=== PATIENT | female | born 1995 | race Caucasian/White ===

== ENCOUNTER 2018-01-25 10:05 | Emergency (ER) | payer OTHER ==
[2018-01-25 10:15] VITALS: TEMP 98; BMI 42.3
--- NOTE | 2018-01-25 10:59 | PDOC ---
History of Present Illness - General Chief Complaint: Lightheaded Stated Complaint: DIZZINESS,LOW BP - History of Present Illness Initial Comments: 01/25/18 10:59 22yo female with a hx of anemia presents with dizziness and lightheadedness since this morning. She states that she woke up this morning and felt lightheaded when she got up and out of bed, feeling like she would pass out. The feeling resolved but recurred again while she was in the shower. Patient states that this happened before about 1 year ago, but she was bleeding and needed to be hospitalized and given iron supplementation. She denies any current bleeding. Denies being . Endorses some nausea but no vomiting. Denies chest pain, SOB, diarrhea, fevers, chills. Allergies: none PMD: none Surg: none Smoke: never Alcohol: never LKMP: 1 month ago Past History - Past Medical History Allergies/Adverse Reactions: Allergies Allergy/AdvReac Type Severity Reaction Status Date / Time No Known Allergies Allergy Verified 01/25/18 10:15 Home Medications: Ambulatory Orders Ferrous Sulfate [Iron] 325 mg PO DAILY 01/25/18 Anemia: Yes COPD: No - Suicide/Smoking/Psychosocial Hx Smoking History: Never smoked Review of Systems - Review of Systems Able to Perform ROS?: Yes Is the patient limited Hebrew proficient: Yes Constitutional: Yes: Weakness Respiratory: No: Shortness of Breath Cardiac (ROS): No: Chest Pain ABD/GI: No: Diarrhea, Nausea, Vomiting : No: Dysuria Neurological: Yes: Dizziness *Physical Exam - Vital Signs Last Vital Signs Temp Pulse Resp BP Pulse Ox 98 F 81 18 118/80 99 01/25/18 10:14 01/25/18 10:14 01/25/18 10:14 01/25/18 10:14 01/25/18 10:14 - Physical Exam Comments: 01/25/18 11:12 GENERAL: A&Ox3, no acute distress EYES: PERRLA, EOMI ENT: Moist mucus membranes NECK: No JVD LUNGS: CTA, no wheezes HEART: RRR, no murmurs ABDOMEN: Obese, Soft, nontender, BS present MUSCULOSKELETAL: No CVA Tenderness EXTREMITIES: 2+ pulses, no edema. NEUROLOGICAL: Cranial nerves II-XII intact. ED Treatment Course - LABORATORY CBC & Chemistry Diagram: 01/25/18 11:20 01/25/18 11:20 Medical Decision Making - Medical Decision Making 01/25/18 11:12 22 year old female hx of anemia presents with dizziness and lightheadedness DDx: anemia, hypo/hyperglycemia, orthostatic hypotension -cbc, cmp, mag, ekg, tsh, UA, -1 liter fluids 01/25/18 11:40 Orthostatics: -laying down: 113/667 -sittin/66 T: 97.7 P: 78 01/25/18 12:45 -patient feels better and is not lightheaded anymore -will check UA and d/c home *DC/Admit/Observation/Transfer Diagnosis at time of Disposition: Lightheadedness - Discharge Dispostion Disposition: HOME Condition at time of disposition: Stable Decision to Admit order: No - Referrals Referrals: Won Nagy [Primary Care Provider] - - Patient Instructions Additional Instructions: You were seen in the hospital for lightheadedness Your blood tests were all normal. You received some fluids in the hospital Please make an appointment with your primary care physician within 1 week of discharge If your symptoms get worse, please return to the emergency department - Post Discharge Activity
[2018-01-25] MEDS ORDERED: SODIUM CHLORIDE 0.9% 1000 ML INFUS.BAG IV ONE (11:04)
[2018-01-25 11:27] LABS: BASO % 0.3 % (0-2.0); EOS % 0.5 % (0-4.5); HEMATOCRIT 32.6 % (32.4-45.2); HEMOGLOBIN 10.2 GM/dL (10.7-15.3); LYMPH % 9.5 % (8-40); MCH 22.6 pg (25.7-33.7); MCHC 31.3 g/dl (32.0-36.0); MEAN CELL VOLUME 72.2 fl (80-96); MEAN PLT VOLUME 8.2 fl (7.5-11.1); NEUT % 84.7 % (42.8-82.8); PLATELET COUNT 432 K/MM3 (134-434); RBC 4.52 M/mm3 (3.60-5.2); RDW 16.7 % (11.6-15.6); WHITE BLOOD COUNT 10.2 K/mm3 (4.0-10.0)
[2018-01-25 11:42] LABS: ALBUMIN 3.5 g/dl (3.4-5.0); ANION GAP 6 (8-16); BLOOD UREA NITROGEN 10 mg/dL (7-18); CALCIUM 8.4 mg/dL (8.5-10.1); CHLORIDE 106 mmol/L (98-107); CO2 27 mmol/L (21-32); GLUCOSE,RANDOM 126 mg/dL (74-106); SODIUM 139 mmol/L (136-145)
--- NOTE | 2018-01-25 11:42 | PDOC ---
Attending Attestation - HPI HPI: 01/25/18 13:18 The patient is a 22 year old female with a significant PMH of anemia who presents to the emergency department with dizziness, lightheadedness since earlier today. She states that she woke up this morning and felt lightheaded when she got up and out of bed, feeling like she would pass out. The patient states that The feeling resolved but recurred again while she was in the shower. She reports that she has experienced similar episode about 1 year ago, but she was bleeding and needed to be hospitalized and given iron supplementation. The patient denies any current bleeding . she denies being but endorses nausean. The patient denies fever, chills, vomit, diarrhea ,constipation or other urinary symptoms. She denies chest pain, shortness of breath, headache The patient denies any other complaints. PCP: Yakov - Physicial Exam PE: 01/25/18 13:18 GENERAL: Awake, alert, and fully oriented, in no acute distress HEAD: No signs of trauma EYES: PERRLA, EOMI, sclera anicteric, conjunctiva clear ENT: Auricles normal inspection, hearing grossly normal, nares patent, oropharynx clear without exudates. Moist mucosa NECK: Normal ROM, supple, no lymphadenopathy, JVD, or masses LUNGS: Breath sounds equal, clear to auscultation bilaterally. No wheezes, and no crackles HEART: Regular rate and rhythm, normal S1 and S2, no murmurs, rubs or gallops ABDOMEN: Soft,obese, nontender, normoactive bowel sounds. No guarding, no rebound. No masses EXTREMITIES: Normal range of motion, no edema. No clubbing or cyanosis. No cords, erythema, or tenderness NEUROLOGICAL: Cranial nerves II through XII grossly intact. Normal speech, normal gait SKIN: Warm, Dry, normal turgor, no rashes or lesions noted. Documentation prepared by Ruby Acosta, acting as medical scientist for Anne Page MD. <Ruby Acosta - Last Filed: 01/25/18 13:18> - Resident Resident Name: Bam Keys - ED Attending Attestation I have performed the following: I have examined & evaluated the patient, The case was reviewed & discussed with the resident, I agree w/resident's findings & plan, Exceptions are as noted - Medical Decision Making 06/17/18 11:38 I, Dr. Anne Page, DO, attest that this document has been prepared under my direction and personally reviewed by me in its entirety. I further attest, that it accurately reflects all work, treatment, procedures and medical decision -making performed by me. 01/25/18 11:38 a/p: 22yo female presents c/o lightheaded -worse when she sits up or stands -no cp/sob -had palpitations this AM -hx of heavy menstrual cycles - required iv iron infusions and blood transfusions in 2016 -recently given rx for control to control heavy menstrual bleeding, but hasn't started taking it yet -has not followed up with hematology -will check labs, orthostatic vs, ekg, tsh 01/25/18 13:08 labs reviewed, hgb 10 feels better after ivf hydration stable for d/c to home with outpt follow up with tank truck loader <Anne Page - Last Filed: 01/25/18 13:19> Discharge Disposition <Anne Page - Last Filed: 01/25/18 13:19> - Diagnosis Lightheadedness - Discharge Dispostion Disposition: HOME Condition at time of disposition: Stable - Referrals Referrals: Mavis Miller MD [Staff Physician] - 28 days Won Nagy [Primary Care Provider] - - Patient Instructions Additional Instructions: You were seen in the hospital for lightheadedness Your blood tests were all normal. You received some fluids in the hospital Please make an appointment with your primary care physician within 1 week of discharge Please make an appointment with the yarder engineer Dr. Miller within 1 month of discharge to evaluate anemia If your symptoms get worse, please return to the emergency department - Post Discharge Activity Work/School Note: Back to Work Heart Score/ECG Review - ECG Intrepretation Comment:: 01/25/18 11:42 sinus at 73, nl axis, nl interval, t wave inversions III which are nonspecific <Anne Page - Last Filed: 01/25/18 13:19>
[2018-01-25 11:45] LABS: BILIRUBIN,TOTAL 0.4 mg/dL (0.2-1.0); CREATININE 0.6 mg/dL (0.55-1.02); SGOT/AST 48 U/L (15-37); SGPT/ALT 96 U/L (12-78); TOT PROT 7.6 g/dl (6.4-8.2)
[2018-01-25 11:54] LABS: ALK PHOS 142 U/L (45-117)
[2018-01-25 12:34] VITALS: PULSE 78
[2018-01-25 12:35] VITALS: BP 114/58
[2018-01-25 12:57] LABS: URINE APPEARANCE CLEAR; URINE BILIRUBIN NEGATIVE (<2.0 mg/dL); URINE COLOR YELLOW; URINE GLUCOSE (UA) NEGATIVE (NEGATIVE); URINE KETONE NEGATIVE (NEGATIVE); URINE LEUK ESTERASE NEGATIVE (NEGATIVE); URINE NITRITE NEGATIVE (NEGATIVE); URINE PROTEIN NEGATIVE (NEGATIVE); URINE UROBILINOGEN NEGATIVE mg/dL (0.2-1.0)
--- NOTE | 2018-01-25 19:37 | EKG ---
Test Reason : Blood Pressure : / mmHG Vent. Rate : 073 BPM Atrial Rate : 073 BPM P-R Int : 136 ms QRS Dur : 096 ms QT Int : 404 ms P-R-T Axes : 030 055 018 degrees QTc Int : 445 ms NORMAL SINUS RHYTHM NORMAL ECG NO PREVIOUS ECGS AVAILABLE Confirmed by MADELEIEN BRAND, NORMA ([id number]) on 01/25/2018 7:36:40 PM Referred By: Confirmed By:NORMA SALVADOR MD
== END 2018-01-25 13:33 | disposition home or self-care (01) ==
LOC: JER 10:05
DX: R42 Dizziness and giddiness (principal); D64.89 Other specified anemias
CPT/HCPCS: 36415; 80053; 81003; 83735; 84443; 84703; 85025; 93005; 93010; 99283-25; J7030

== ENCOUNTER 2018-12-17 11:14 | Emergency (ER) | payer SELFPAY ==
[2018-12-17 11:23] VITALS: BP 134/73; PULSE 95; TEMP 98.3; BMI 44.4
[2018-12-17] MEDS ORDERED: SODIUM CHLORIDE 1,000 ML IV STA (12:21)
[2018-12-17] MEDS ORDERED: ACETAMINOPHEN 1000 MG/100 ML VIAL (NON FORMULARY) IVPB ONE (12:21)
[2018-12-17] MEDS ORDERED: ACETAMINOPHEN INJECTION 100 ML IVPB ONE (12:29)
[2018-12-17 12:50] LABS: BASO % 1.2 % (0-2.0); EOS % 1.5 % (0-4.5); HEMATOCRIT 29.6 % (32.4-45.2); HEMOGLOBIN 8.9 GM/dL (10.7-15.3); MCH 21.6 pg (25.7-33.7); MCHC 30.2 g/dl (32.0-36.0); MEAN CELL VOLUME 71.5 fl (80-96); MEAN PLT VOLUME 8.4 fl (7.5-11.1); MONO % 5.6 % (3.8-10.2); NEUT % 72.7 % (42.8-82.8); PLATELET COUNT 430 K/MM3 (134-434); RBC 4.14 M/mm3 (3.60-5.2); RDW 16.9 % (11.6-15.6); WHITE BLOOD COUNT 10.4 K/mm3 (4.0-10.0)
[2018-12-17 13:26] LABS: ALBUMIN 3.6 g/dl (3.4-5.0); BILIRUBIN,TOTAL 0.4 mg/dL (0.2-1); CALCIUM 9.1 mg/dL (8.5-10.1); CREATININE 0.6 mg/dL (0.55-1.3); POTASSIUM 4.3 mmol/L (3.5-5.1); TOT PROT 7.7 g/dl (6.4-8.2)
[2018-12-17 13:43] LABS: PH,URINE 5.5 (5.0-8.0); URINE APPEARANCE CLEAR; URINE BACTERIA 11.2 /hpf (NEGATIVE); URINE BILIRUBIN NEGATIVE (NEGATIVE); URINE CASTS 0 /lpf (0-8); URINE COLOR YELLOW; URINE GLUCOSE (UA) NEGATIVE (NEGATIVE); URINE KETONE NEGATIVE (NEGATIVE); URINE LEUK ESTERASE TRACE (NEGATIVE); URINE NITRITE NEGATIVE (NEGATIVE); URINE PROTEIN NEGATIVE (NEGATIVE); URINE RBC 1 /hpf (0-4); URINE UROBILINOGEN 0.2 mg/dL (0.2-1.0); URINE WBC 1 /hpf (0-5)
[2018-12-17 14:28] LABS: ANISOCYTOSIS 1+; MACROCYTOSIS 0; PLATELET ESTIMATE NORMAL
--- NOTE | 2018-12-17 15:25 | PDOC ---
History of Present Illness - General Chief Complaint: Vaginal Bleeding Stated Complaint: VAGINAL BLEED Time Seen by Provider: 12/17/18 12:16 History Source: Patient Exam Limitations: No Limitations - History of Present Illness Travel History: No Initial Comments: 12/17/18 15:21 23-year-old female presents to ED with complaints of lower abdominal cramping, intermittent vaginal bleeding for the past 2 months, passing large clots, and mild low back pain dull pressure. Patient denies headache, dizziness, weakness, nausea, change in urine pattern, or visual changes. Patient does state mild weakness and is supposed be taking iron daily but feels to take it every day due to side effects of stomach cramping. Patient denies change in weight, hair texture, or increased dryness to the skin Timing/Duration: reports: intermittent Quality: reports: mild, cramping Abdominal Pain Onset Location: reports: suprapubic Pain Radiation: reports: back Activities at Onset: reports: none Aggravating Factors: improves with: None Alleviating Factors: improves with: None Past History - Travel Traveled outside of the country in the last 30 days: No Close contact w/someone who was outside of country & ill: No - Past Medical History Allergies/Adverse Reactions: Allergies Allergy/AdvReac Type Severity Reaction Status Date / Time No Known Allergies Allergy Verified 12/17/18 11:23 Home Medications: Ambulatory Orders Ferrous Sulfate [Iron] 325 mg PO DAILY 01/25/18 Anemia: Yes COPD: No - Suicide/Smoking/Psychosocial Hx Smoking History: Never smoked Hx Alcohol Use: No Drug/Substance Use Hx: No Patient Lives Alone: No Lives with/in: parents Review of Systems - Review of Systems Able to Perform ROS?: Yes Constitutional: Yes: Weakness HEENTM: No: Symptoms Reported Respiratory: No: Symptoms reported Cardiac (ROS): No: Symptoms Reported ABD/GI: Yes: Abdominal cramping : Yes: Discharge Musculoskeletal: Yes: Back Pain Integumentary: No: Symptoms Reported Neurological: Yes: Weakness. No: Headache, Dizziness Hematologic/Lymphatic: No: Symptoms Reported *Physical Exam - Vital Signs Last Vital Signs Temp Pulse Resp BP Pulse Ox 98.3 F 95 H 16 134/73 98 12/17/18 11:21 12/17/18 11:21 12/17/18 11:21 12/17/18 11:21 12/17/18 11:21 - Physical Exam General Appearance: Yes: Nourished, Appropriately Dressed. No: Apparent Distress HEENT: positive: ROMAN. negative: Pale Conjunctivae Neck: positive: Normal Thyroid, Supple Respiratory/Chest: positive: Lungs Clear, Normal Breath Sounds. negative: Respiratory Distress, Accessory Muscle Use Cardiovascular: positive: Regular Rhythm, Regular Rate. negative: Murmur Female Pelvic Exam: positive: cervical os closed, vaginal bleeding (bright red, no clots) Gastrointestinal/Abdominal: positive: Soft, Tenderness (mild mid suprapubic) Integumentary: positive: Normal Color, Warm, Moist Neurologic: positive: Motor Strength 5/5 (ambulatory) ED Treatment Course - LABORATORY CBC & Chemistry Diagram: 12/17/18 12:40 12/17/18 12:40 - ADDITIONAL ORDERS Additional order review: Laboratory Results 12/17/18 12/17/18 12/17/18 13:23 12:40 12:40 Sodium 137 Potassium 4.3 Chloride 105 Carbon Dioxide 27 Anion Gap 5 L BUN 12 Creatinine 0.6 Est GFR (CKD-EPI)AfAm 151.01 Est GFR (CKD-EPI)NonAf 130.29 Random Glucose 111 H Calcium 9.1 Total Bilirubin 0.4 AST 35 ALT 100 H Alkaline Phosphatase 131 H Total Protein 7.7 Albumin 3.6 Urine Color Yellow Urine Appearance Clear Urine pH 5.5 Ur Specific [place] 1.015 Urine Protein Negative Urine Glucose (UA) Negative Urine Ketones Negative Urine Blood Negative Urine Nitrite Negative Urine Bilirubin Negative Urine Urobilinogen 0.2 Ur Leukocyte Esterase Trace Urine WBC (Auto) 1 Urine RBC (Auto) 1 Urine Casts (Auto) 0 U Epithel Cells (Auto) 1.0 Urine Bacteria (Auto) 11.2 Blood Type O POSITIVE Antibody Screen Negative 12/17/18 12:40 RBC 4.14 MCV 71.5 L MCHC 30.2 L RDW 16.9 H MPV 8.4 Neutrophils % 72.7 Lymphocytes % 19.0 D Monocytes % 5.6 Eosinophils % 1.5 D Basophils % 1.2 D - RADIOLOGY Radiology Studies Ordered: Category Date Time Status PELVIC / BLADDER US [US] Stat Ultrasound 12/17/18 12:21 Taken TRANSVAGINAL ULTRASOUND US [US] Stat Ultrasound 12/17/18 12:21 Taken - Medications Given in the ED: ED Medications Discontinued Medications Generic Name Dose Route Start Last Admin Trade Name Giovanny PRN Reason Stop Dose Admin Acetaminophen 1,000 mg 12/17/18 12:21 12/17/18 12:43 Ofirmev Injection - IVPB 12/17/18 12:22 1,000 mg ONCE ONE Administration Sodium Chloride 1,000 mls @ 1,000 mls/hr 12/17/18 12:21 12/17/18 12:43 Normal Saline - IV 12/17/18 13:20 1,000 mls/hr ASDIR STA Administration Medical Decision Making - Medical Decision Making 12/17/18 13:21 Complaint: Lower abdominal cramping associated intermittent vaginal bleeding for the past month now with low back pain and mild weakness. Patient states history of anemia and supposed to be on ibuprofen to take it everyday due to upper abdominal sharp pains patient denies irregular menses up until recently Exam: Mid suprapubic tenderness vital signs stable. No CVA or reproducible back pain Plan: Labs, urine, IV Tylenol, IV fluids and ultrasound ordered 12/17/18 14:26 Laboratory Tests 12/17/18 12/17/18 12/17/18 12:40 12:40 13:23 WBC 10.4 H Hgb 8.9 L Hct 29.6 L RDW 16.9 H Sodium 137 Potassium 4.3 Chloride 105 Carbon Dioxide 27 Anion Gap 5 L BUN 12 Creatinine 0.6 Random Glucose 111 H Calcium 9.1 Total Bilirubin 0.4 AST 35 ALT 100 H Alkaline Phosphatase 131 H Albumin 3.6 Urine Ketones Negative Urine Blood Negative Urine Nitrite Negative Urine Bilirubin Negative Ur Leukocyte Esterase Trace Urine WBC (Auto) 1 12/17/18 15:21 Ultrasound shows a normal-appearing endometrioma 8 mm thickness with multiple nabothian cysts within the cervix. The left ovary is normal size and texture with arteriovenous flow documented to the ovary. The right ovary could not be identified. This no evidence of adnexal masses or free fluid collections 12/17/18 15:35 Patient understands if she develops Increased vaginal bleeding or severe abdominal pain to return to the ED versus waiting to see the COPY CLERK. Patient recommended to have endocrinology workup and metabolic workup including thyroid and hormone levels. *DC/Admit/Observation/Transfer Diagnosis at time of Disposition: Prolonged menstrual cycle - Discharge Dispostion Disposition: HOME Condition at time of disposition: Good - Referrals Referrals: Digna Bains MD [Staff Physician] - - Patient Instructions Printed Discharge Instructions: Heavy Menstrual Bleeding Additional Instructions: Please follow-up with your probate clerk Dr. James and bring copy the lab work and ultrasound with you. Eat high iron foods and consider taking your iron tablets. Return to ED if your symptoms of increased vaginal bleeding abdominal pain or weakness worsen prior to your follow-up with your ANIMAL CARE ASSISTANT - Post Discharge Activity
== END 2018-12-17 16:01 | disposition home or self-care (01) ==
LOC: JER 11:14
PROC: 3E033NZ Introduction of Analgesics, Hypnotics, Sedatives into Peripheral Vein, Percutaneous Approach (ICD-10-PCS; principal; 2018-12-17)
DX: N92.1 Excessive and frequent menstruation with irregular cycle (principal); D64.9 Anemia, unspecified
CPT/HCPCS: 36415; 76830-TC; 76856-TC; 80053; 81003; 85025; 86850; 86900; 86901; 87086; 99281-25; J0131; J7030

== ENCOUNTER 2018-12-27 22:19 | Inpatient (IN) | payer MEDICARE ==
--- NOTE | 2018-12-27 23:44 | PDOC ---
History of Present Illness - General Chief Complaint: Lightheaded Stated Complaint: DIZZINESS/PAIN Time Seen by Provider: 12/27/18 23:24 History Source: Patient - History of Present Illness Initial Comments: 12/27/18 23:45 23 year old female with vaginal bleeding x 2 month complaining of dizziness, weakness and shortness of breath x 3 days. seen in this ED on 12/17/2018 Hgb 8.9. + dizziness. denies Vomiting, diarrhea, abdominal pain, urinary symptoms. patient reports that she is using 8 diapers per day due to heavy bleeding Past History - Past Medical History Allergies/Adverse Reactions: Allergies Allergy/AdvReac Type Severity Reaction Status Date / Time No Known Allergies Allergy Verified 12/28/18 00:55 Home Medications: Ambulatory Orders Unobtainable 12/28/18 Anemia: Yes COPD: No - Suicide/Smoking/Psychosocial Hx Smoking History: Never smoked Hx Alcohol Use: No Drug/Substance Use Hx: No Review of Systems - Review of Systems Able to Perform ROS?: Yes Is the patient limited Irish proficient: No Constitutional: Yes: Weakness. No: Symptoms Reported, See HPI, Chills, Diaphoresis, Fever, Loss of Appetite, Malaise, Night Sweats, Weight Stable, Unintentional Wgt. Loss, Unexplained wgt Loss, Other Respiratory: Yes: SOB with Exertion Cardiac (ROS): Yes: Lightheadedness. No: Symptoms Reported, See HPI, Chest Pain , Edema, Irregular Heart Rate, Palpitations, Syncope, Chest Tightness, Other Neurological: Yes: Dizziness *Physical Exam - Vital Signs Last Vital Signs Temp Pulse Resp BP Pulse Ox 98.6 F 109 H 18 126/78 99 12/27/18 22:38 12/27/18 22:38 12/27/18 22:38 12/27/18 22:38 12/27/18 22:38 - Physical Exam General Appearance: Yes: Appropriately Dressed Respiratory/Chest: positive: Lungs Clear, Normal Breath Sounds Cardiovascular: positive: Tachycardia Gastrointestinal/Abdominal: positive: Normal Bowel Sounds, Soft. negative: Tender Extremity: positive: Normal Capillary Refill Integumentary: positive: Pale Neurologic: positive: Fully Oriented, Alert, Normal Mood/Affect ED Treatment Course - LABORATORY CBC & Chemistry Diagram: 12/28/18 00:10 12/28/18 00:10 Medical Decision Making - Medical Decision Making A: symptomatic anemia P: cbc cmp type and screen IVF PRBCs 12/28/18 01:[address] mayer will consult inpatient. no imaging recommended at this time. 12/28/18 01:19 patient to be admitted for further management of care. patient signed out to Dr. liz / Dr. spears 12/28/18 06:08 12/28/18 06:09 *DC/Admit/Observation/Transfer Diagnosis at time of Disposition: Lightheadedness, Prolonged menstrual cycle, Symptomatic anemia - Discharge Dispostion Decision to Admit order: Yes - Referrals - Patient Instructions - Post Discharge Activity
[2018-12-27] MEDS ORDERED: SODIUM CHLORIDE 0.9% 500 ML INFUS.BAG IV ONE (23:47)
[2018-12-28 00:26] LABS: EPI CELLS 1.6 /HPF (0-5/HPF); HYALINE CASTS 2 /lpf (0-8); URINE APPEARANCE CLEAR; URINE BILIRUBIN NEGATIVE (NEGATIVE); URINE COLOR YELLOW; URINE GLUCOSE (UA) NEGATIVE (NEGATIVE); URINE KETONE NEGATIVE (NEGATIVE); URINE LEUK ESTERASE NEGATIVE (NEGATIVE); URINE NITRITE NEGATIVE (NEGATIVE); URINE PROTEIN NEGATIVE (NEGATIVE); URINE RBC 168 /hpf (0-4); URINE UROBILINOGEN 0.2 mg/dL (0.2-1.0); URINE WBC 1 /hpf (0-5)
[2018-12-28 00:42] LABS: BASO % 0.9 % (0-2.0); EOS % 0.8 % (0-4.5); HEMATOCRIT 20.7 % (32.4-45.2); LYMPH % 16.8 % (8-40); MCH 21.3 pg (25.7-33.7); MCHC 30.5 g/dl (32.0-36.0); MEAN CELL VOLUME 69.9 fl (80-96); MEAN PLT VOLUME 8.2 fl (7.5-11.1); MONO % 4.2 % (3.8-10.2); NEUT % 77.3 % (42.8-82.8); PLATELET COUNT 455 K/MM3 (134-434); RBC 2.96 M/mm3 (3.60-5.2); WHITE BLOOD COUNT 10.8 K/mm3 (4.0-10.0)
[2018-12-28 00:46] LABS: HEMOGLOBIN 6.3 GM/dL (10.7-15.3)
[2018-12-28 00:56] LABS: INR 0.99 (0.83-1.09); PROTHROMBIN TIME (PATIENT) 11.7 SEC (9.7-13.0)
[2018-12-28 00:59] LABS: ACTIVATED PTT 27.1 SECONDS (25.2-36.5)
[2018-12-28 01:11] LABS: ALBUMIN 3.4 g/dl (3.4-5.0); BILIRUBIN,TOTAL 0.3 mg/dL (0.2-1); CALCIUM 8.7 mg/dL (8.5-10.1); CREATININE 0.6 mg/dL (0.55-1.3); POTASSIUM 4.5 mmol/L (3.5-5.1); TOT PROT 7.2 g/dl (6.4-8.2)
--- NOTE | 2018-12-28 01:54 | HP ---
CHIEF COMPLAINT: dizziness, weakness, SOB Bushwalking Guide: Dr. Hale HISTORY OF PRESENT ILLNESS: 23-year-old female with a history of morbid obesity and prior vaginal bleeding presents today for two days of dizziness, weakness, and shortness of breath for three days. Patient reports that she has been having significant vaginal bleeding For the past month, Sometime soaking 8 diapers per day. She reports it has reduced to about three diapers per day.Reports having transfusions without any reaction in the past. Patient was seen on December 17 of this year for similar symptoms and had a transvaginal ultrasound which did not show any abnormalities. She reports seeing Dr. Hale As her OB. She reports she was previously on iron pills, which caused her to become bloated and so she stopped taking them. Currently denies any chest pain, shortness of breath, nausea, vomiting, diarrhea, fevers, chills. She reports she has been gaining weight unintentionally even though she is dieting and exercising. She reports being told by her doctors that she should she see an manufacturing chief engineer for her thyroid. ER course was notable for: (1) Hemoglobin 6.8 (2) Mild transaminitis (3) Recent Travel:Denies PAST MEDICAL HISTORY:Morbid obesity PAST SURGICAL HISTORY:Denies Social History: Smoking:Wanted to cigarettes per week, for a couple of years Alcohol:Social Drugs: Denies any drug use Family History:Denies any family history of bleeding. History of diabetes in the father. Denies any history of heart disease or stroke the family Allergies No Known Allergies Allergy (Verified 12/28/18 00:55) HOME MEDICATIONS: Home Medications Medication Instructions Recorded Unobtainable 12/28/18 REVIEW OF SYSTEMS CONSTITUTIONAL: Absent: fever, chills, diaphoresis, generalized weakness, malaise, loss of appetite, weight change HEENT: Absent: rhinorrhea, nasal congestion, throat pain, throat swelling, difficulty swallowing, mouth swelling, ear pain, eye pain, visual changes CARDIOVASCULAR: Absent: chest pain, syncope, palpitations, irregular heart rate, lightheadedness , peripheral edema RESPIRATORY: Absent: cough, shortness of breath, dyspnea with exertion, orthopnea, wheezing, stridor, hemoptysis GASTROINTESTINAL: Absent: abdominal pain, abdominal distension, nausea, vomiting, diarrhea, constipation, melena, hematochezia GENITOURINARY: Absent: dysuria, frequency, urgency, hesitancy, hematuria, flank pain, genital pain MUSCULOSKELETAL: Absent: myalgia, arthralgia, joint swelling, back pain, neck pain SKIN: Absent: rash, itching, pallor HEMATOLOGIC/IMMUNOLOGIC: Absent: easy bleeding, easy bruising, lymphadenopathy, frequent infections ENDOCRINE: Absent: unexplained weight gain, unexplained weight loss, heat intolerance, cold intolerance NEUROLOGIC: Absent: headache, focal weakness or paresthesias, dizziness, unsteady gait, seizure, mental status changes, bladder or bowel incontinence PSYCHIATRIC: Absent: anxiety, depression, suicidal or homicidal ideation, hallucinations. PHYSICAL EXAMINATION Vital Signs - 24 hr 12/27/18 12/28/18 22:38 00:56 Temperature 98.6 F Pulse Rate 109 H Pulse Rate [ 96 H Sitting] Pulse Rate [ 102 H Standing] Pulse Rate [ 94 H Supine] Respiratory 18 Rate Blood Pressure 126/78 Blood Pressure 121/66 [Sitting] Blood Pressure 111/63 [Standing] Blood Pressure 126/69 [Supine] O2 Sat by Pulse 99 Oximetry (%) GENERAL: A&Ox3, no acute distress EYES: PERRLA, EOMI ENT: Moist mucus membranes NECK: No JVD LUNGS: CTA, no wheezes HEART: Mildly tachycardic without murmurs ABDOMEN: Morbidly obese, Soft, nontender, BS present MUSCULOSKELETAL: No CVA Tenderness EXTREMITIES: 2+ pulses, no edema. NEUROLOGICAL: Cranial nerves II-XII intact. Laboratory Results - last 24 hr 12/27/18 12/27/18 12/28/18 23:27 23:39 00:10 WBC 10.8 H RBC 2.96 L Hgb 6.3 L* Hct 20.7 L D MCV 69.9 L MCH 21.3 L MCHC 30.5 L RDW 17.0 H Plt Count 455 H MPV 8.2 Absolute Neuts (auto) 8.3 H Neutrophils % 77.3 Lymphocytes % 16.8 Monocytes % 4.2 Eosinophils % 0.8 Basophils % 0.9 Nucleated RBC % 0 PT with INR INR PTT (Actin FS) Sodium Potassium Chloride Carbon Dioxide Anion Gap BUN Creatinine Est GFR (CKD-EPI)AfAm Est GFR (CKD-EPI)NonAf Random Glucose Calcium Total Bilirubin AST ALT Alkaline Phosphatase Total Protein Albumin Urine Color Yellow Urine Appearance Clear Urine pH 5.0 Ur Specific [place] 1.010 Urine Protein Negative Urine Glucose (UA) Negative Urine Ketones Negative Urine Blood 3+ H Urine Nitrite Negative Urine Bilirubin Negative Urine Urobilinogen 0.2 Ur Leukocyte Esterase Negative Urine WBC (Auto) 1 Urine RBC (Auto) 168 Urine Casts (Auto) 2 U Epithel Cells (Auto) 1.6 Urine Bacteria (Auto) 11.0 Urine HCG, Qual Negative Crossmatch 12/28/18 12/28/18 12/28/18 00:10 00:10 00:10 WBC RBC Hgb Hct MCV MCH MCHC RDW Plt Count MPV Absolute Neuts (auto) Neutrophils % Lymphocytes % Monocytes % Eosinophils % Basophils % Nucleated RBC % PT with INR 11.70 INR 0.99 PTT (Actin FS) 27.1 Sodium 136 Potassium 4.5 Chloride 104 Carbon Dioxide 26 Anion Gap 7 L BUN 14 Creatinine 0.6 Est GFR (CKD-EPI)AfAm 151.01 Est GFR (CKD-EPI)NonAf 130.29 Random Glucose 136 H Calcium 8.7 Total Bilirubin 0.3 AST 64 H ALT 102 H Alkaline Phosphatase 145 H Total Protein 7.2 Albumin 3.4 Urine Color Urine Appearance Urine pH Ur Specific [place] Urine Protein Urine Glucose (UA) Urine Ketones Urine Blood Urine Nitrite Urine Bilirubin Urine Urobilinogen Ur Leukocyte Esterase Urine WBC (Auto) Urine RBC (Auto) Urine Casts (Auto) U Epithel Cells (Auto) Urine Bacteria (Auto) Urine HCG, Qual Crossmatch See Detail ASSESSMENT/PLAN: 23-year-old female with a history of morbid obesity presenting for three days of dizziness weakness and shortness of breath and admitted for the treatment of symptomatic anemia #Symptomatic anemia: Likely iron deficiency from chronic blood loss, Initial hemoglobin was 6.8, Previously hemoglobin less than a month ago was 8.9 -Check iron studies -Transfuse two units of PRBC's, Recheck labs in the morning -Dr. Hale was consulted and will likely give depo shot -Patient will need to resume taking iron as an outpatient -Since patient had a normal transvaginal ultrasound on previous admission, will not order one currently per retail security professional recommendations #Transaminitis: ALT > AST, Likely secondary to nonalcoholic fatty liver disease -Abdominal ultrasound would be recommended on discharge #Morbid obesity: Patient has a BMI of 45 and has been gaining weight unintentionally -Will check and A1C level on her -Counseled on the importance of diet and exercise -Patient will have to see an manufacturing chief engineer for an evaluation of her thyroid #FEN: -No standing fluid this patient will be getting blood -Electrolytes are within normal limits -Regular diet #Prophylaxis: -Because of patients bleeding will put her on SCDs #Disposition: -Admit MedSurg obs Visit type - Emergency Visit Emergency Visit: Yes ED Registration Date: 12/28/18 Care time: The patient presented to the Emergency Department on the above date and was hospitalized for further evaluation of their emergent condition. - New Patient This patient is new to me today: Yes Date on this admission: 12/28/18 - Critical Care Critical Care patient: No
[2018-12-28 03:31] VITALS: BMI 45.1
--- NOTE | 2018-12-28 04:40 | PN ---
Teaching Attending Note Name of Resident: Bam Keys ATTENDING PHYSICIAN STATEMENT I saw and evaluated the patient. I reviewed the resident's note and discussed the case with the resident. I agree with the resident's findings and plan as documented. SUBJECTIVE: Seen and examined; please refer to resident note for further historical information. Briefly, this is a 23 y/o female presenting to the ER with a CC of dizziness and lightheadness found to have symptomatic microcytic anemia in the setting of menorrhagia; she has had this issue in the past and was seen by Dr. Bains and given depo. She recently changed insurance actuary care to Dr. Bautista. Dr. Bains consulted by ER recommended transfusion and admission to medicine. She is afebrile and hemodynamically stable. She used to be on PO iron but self DCd it due to bloating and constipation. She will be brought to medicine with OBGYN consult. No chest pain, syncope, etc. 10 sys ROS done and negative aside from HPI PMH, PSH, FH, SH reviewed Home Medications Medication Instructions Recorded Unobtainable 12/28/18 OBJECTIVE: VS, labs, imaging reviewed NAD, AAO, resting in bed. Pale skin, no rashes NC AT EOMI PERRLA RRR s1/2 no mgr Lungs CTAB, w/ sym exp NT ND +BS CN2-12 wnl, no fnds Normal mood, appropriate behavior ASSESSMENT AND PLAN: Patient presents with symptomatic microcytic anemia due to dysfunctional uterine bleeding; has gotten depo in the past 1) Symptomatic microcytic anemia -Checking iron studies prior to XF then will transfuse -Restart PO iron prior to DC; see if she would need a dose of venofer while inpatient. -Treatment of the underlying cause per OBGYN 2) Dysfunctional uterine bleeding -No need for repeat US per OBGYN; ER consult placed but she informed us she changed her OB. Will discuss with present services in AM to respect continuity of care. -Defer further treatment (depo, etc.) to insurance actuary. 3) Obesity (BMI 45) -Repairer Welding Equipment prior to DC 4) Thrombocytosis -Could be reactive Full Code
--- NOTE | 2018-12-28 14:40 | CON.OBG ---
Consult Consult Specialty:: ORGANIZATIONAL RESEARCH CONSULTANT Reason for Consultation:: Menorragia / Anemia - History of Present Illness Chief Complaint: Dizziness History of Present Illness: 23-year-old female with a history of morbid obesity and prior vaginal bleeding presents today for two days of dizziness, weakness, and shortness of breath for three days. Patient reports that she has been having significant vaginal bleeding For the past month, Sometime soaking 8 diapers per day. She reports it has reduced to about three diapers per day.Reports having transfusions without any reaction in the past. Patient was seen on December 17 of this year for similar symptoms and had a transvaginal ultrasound which did not show any abnormalities. ORGANIZATIONAL RESEARCH CONSULTANT consulted; I came to see patient, she's known to me. She was on Depo- Provera 2 years ago but has decided to discontinue it since period had become regular. - History Source History Provided By: Patient Limitations to Obtaining History: No Limitations - Past Medical History ...: 0 ...Para: 0 - Past Surgical History Past Surgical History: Yes: None - Alcohol/Substance Use Hx Alcohol Use: No - Smoking History Smoking history: Never smoked - Social History Usual Living Arrangement: With Parent History of Recent Travel: No Home Medications - Allergies Allergies/Adverse Reactions: Allergies Allergy/AdvReac Type Severity Reaction Status Date / Time No Known Allergies Allergy Verified 12/28/18 00:55 - Home Medications Home Medications: Ambulatory Orders Ascorbic Acid [Vitamin C] 100 mg PO DAILY #30 tablet 12/28/18 Ferrous Sulfate 325 mg PO DAILY #30 tablet 12/28/18 Family Disease History - Family Disease History Family History: Unremarkable Review of Systems - Review of Systems Constitutional: denies: Malaise, Weakness Eyes: reports: No Symptoms HENT: reports: No Symptoms Neck: reports: No Symptoms Cardiovascular: reports: No Symptoms Respiratory: reports: No Symptoms Gastrointestinal: reports: No Symptoms Genitourinary: reports: Vaginal Bleeding Neurological: reports: No Symptoms Endocrine: reports: Unexplained Weight Gain Hematology/Lymphatic: reports: No Symptoms Psychiatric: reports: No Symptoms Pain Intensity: 0 Physical Exam-ORGANIZATIONAL RESEARCH CONSULTANT Vital Signs: Vital Signs Temperature 98.3 F 12/28/18 10:55 Pulse Rate 86 12/28/18 10:55 Respiratory Rate 18 12/28/18 10:55 Blood Pressure 121/75 12/28/18 10:55 O2 Sat by Pulse Oximetry (%) 98 12/28/18 11:00 Constitutional: Yes: Calm. No: No Distress Eyes: Yes: WNL HENT: Yes: Atraumatic Neck: Yes: Supple Cardiovascular: Yes: Regular Rate and Rhythm Respiratory: Yes: Regular Gastrointestinal: Yes: Normal Bowel Sounds External Genitalia: Yes: Normal Vaginal Exam: Yes: Other (Bloody discharge) Cervix: Yes: Normal Uterus: Yes: Normal Breast(s): Yes: WNL Musculoskeletal: Yes: WNL Extremities: Yes: WNL Neurological: Yes: Alert, Oriented ...Motor Strength: WNL Psychiatric: Yes: Alert, Oriented Labs: CBC, BMP 12/28/18 00:10 12/28/18 00:10 Problem List - Problems (1) Menorrhagia Code(s): N92.0 - EXCESSIVE AND FREQUENT MENSTRUATION WITH REGULAR CYCLE Qualifiers: Menorrahagia type: with irregular cycle Qualified Code(s): N92.1 - Excessive and frequent menstruation with irregular cycle (2) Severe anemia Code(s): D64.9 - ANEMIA, UNSPECIFIED Assessment/Plan Menorrhagia Severe anemia Obesity Status post blood transfusion F/U repeat CBC IM Depo-Provera F/U with ORGANIZATIONAL RESEARCH CONSULTANT as outpatient
[2018-12-28 14:52] VITALS: BP 111/92; PULSE 97; TEMP 98.5
[2018-12-28] MEDS ORDERED: medroxyPROGESTERone ACET 150 MG/1 ML VIAL IM ONE (15:00)
--- NOTE | 2018-12-28 15:00 | PN ---
Teaching Attending Note Name of Resident: Chandana Carbajal ATTENDING PHYSICIAN STATEMENT I saw and evaluated the patient. I reviewed the resident's note and discussed the case with the resident. I agree with the resident's findings and plan as documented. SUBJECTIVE:dizzyness has resolved. states menses is now just light spotting. has had heavy menses x2 months. menses has been irregular and heavy over the past year. has not seen it security specialist about it. has know to have sporadic menses. denies Cp, SOB, fever, chills, N/V/C/D OBJECTIVE: Last Vital Signs Temp Pulse Resp BP Pulse Ox 98.5 F 97 H 18 111/92 98 12/28/18 14:51 12/28/18 14:51 12/28/18 14:51 12/28/18 14:51 12/28/18 11:00 General NAD CV S1 S2 RRR no murmur/rub/gallop lungs CTA B/L no wheezing/rale/srhonchi Abdomen soft NT/ND ASSESSMENT AND PLAN: 23 yo F with PMH metomenorrhagia presenting with dizzyness and found to have anemia 1. Symptomatic anemia- symptoms resolved. already received 1st unit of PRBC. 2nd one is ordered. will check post- txn cbc. should have iron studies checked as outpatient. should have periodic surveillance of Hgb if continues to have menohrragia 2. Metomenorrhagia- has not been worked up for in the past. STREETCAR OPERATOR consulted here. may benefit from depo IM. awiating eval 3. possible d/c later today pending repeat cbc
[2018-12-28 16:23] LABS: HEMATOCRIT 25.2 % (32.4-45.2); HEMOGLOBIN 7.8 GM/dL (10.7-15.3); MCHC 30.9 g/dl (32.0-36.0); MEAN CELL VOLUME 74.5 fl (80-96); MEAN PLT VOLUME 8.1 fl (7.5-11.1); PLATELET COUNT 435 K/MM3 (134-434); RBC 3.38 M/mm3 (3.60-5.2); RDW 20.2 % (11.6-15.6); WHITE BLOOD COUNT 9.2 K/mm3 (4.0-10.0)
--- NOTE | 2018-12-28 16:26 | DS ---
Physical Exam: SUBJECTIVE: Patient seen and examined OBJECTIVE: Vital Signs Period Temp Pulse Resp BP Sys/[place] Pulse Ox Last 24 Hr 98.0 F-98.6 F 86-109 16-18 110-130/56-92 98-100 PHYSICAL EXAM GENERAL: The patient is awake, alert, and fully oriented, in no acute distress. HEAD: Normal with no signs of trauma. EYES: PERRL, extraocular movements intact, sclera anicteric, conjunctiva clear. ENT: Ears normal, nares patent, oropharynx clear without exudates, moist mucous membranes. NECK: Trachea midline, full range of motion, supple. LUNGS: Breath sounds equal, clear to auscultation bilaterally, no wheezes, no crackles, no accessory muscle use. HEART: Regular rate and rhythm, S1, S2 without murmur, rub or gallop. ABDOMEN: Soft, nontender, nondistended, normoactive bowel sounds, no guarding, no rebound, no hepatosplenomegaly, no masses. EXTREMITIES: 2+ pulses, warm, well-perfused, no edema. NEUROLOGICAL: Cranial nerves II through XII grossly intact. Normal speech, gait not observed. PSYCH: Normal mood, normal affect. SKIN: Warm, dry, normal turgor, no rashes or lesions noted. LABS Laboratory Results - last 24 hr 12/27/18 12/27/18 12/28/18 23:27 23:39 00:10 WBC 10.8 H RBC 2.96 L Hgb 6.3 L* Hct 20.7 L D MCV 69.9 L MCH 21.3 L MCHC 30.5 L RDW 17.0 H Plt Count 455 H MPV 8.2 Absolute Neuts (auto) 8.3 H Neutrophils % 77.3 Lymphocytes % 16.8 Monocytes % 4.2 Eosinophils % 0.8 Basophils % 0.9 Nucleated RBC % 0 Hypochromia 2+ Microcytosis 1+ PT with INR INR PTT (Actin FS) Sodium Potassium Chloride Carbon Dioxide Anion Gap BUN Creatinine Est GFR (CKD-EPI)AfAm Est GFR (CKD-EPI)NonAf Random Glucose Calcium Total Bilirubin AST ALT Alkaline Phosphatase Total Protein Albumin Urine Color Yellow Urine Appearance Clear Urine pH 5.0 Ur Specific [place] 1.010 Urine Protein Negative Urine Glucose (UA) Negative Urine Ketones Negative Urine Blood 3+ H Urine Nitrite Negative Urine Bilirubin Negative Urine Urobilinogen 0.2 Ur Leukocyte Esterase Negative Urine WBC (Auto) 1 Urine RBC (Auto) 168 Urine Casts (Auto) 2 U Epithel Cells (Auto) 1.6 Urine Bacteria (Auto) 11.0 Urine HCG, Qual Negative Blood Type Antibody Screen Crossmatch 12/28/18 12/28/18 12/28/18 00:10 00:10 00:10 WBC RBC Hgb Hct MCV MCH MCHC RDW Plt Count MPV Absolute Neuts (auto) Neutrophils % Lymphocytes % Monocytes % Eosinophils % Basophils % Nucleated RBC % Hypochromia Microcytosis PT with INR 11.70 INR 0.99 PTT (Actin FS) 27.1 Sodium 136 Potassium 4.5 Chloride 104 Carbon Dioxide 26 Anion Gap 7 L BUN 14 Creatinine 0.6 Est GFR (CKD-EPI)AfAm 151.01 Est GFR (CKD-EPI)NonAf 130.29 Random Glucose 136 H Calcium 8.7 Total Bilirubin 0.3 AST 64 H ALT 102 H Alkaline Phosphatase 145 H Total Protein 7.2 Albumin 3.4 Urine Color Urine Appearance Urine pH Ur Specific [place] Urine Protein Urine Glucose (UA) Urine Ketones Urine Blood Urine Nitrite Urine Bilirubin Urine Urobilinogen Ur Leukocyte Esterase Urine WBC (Auto) Urine RBC (Auto) Urine Casts (Auto) U Epithel Cells (Auto) Urine Bacteria (Auto) Urine HCG, Qual Blood Type O POSITIVE Antibody Screen Negative Crossmatch See Detail 12/28/18 15:00 WBC 9.2 RBC 3.38 L Hgb 7.8 L Hct 25.2 L D MCV 74.5 L MCH 23.0 L MCHC 30.9 L RDW 20.2 H Plt Count 435 H MPV 8.1 Absolute Neuts (auto) Neutrophils % Lymphocytes % Monocytes % Eosinophils % Basophils % Nucleated RBC % Hypochromia Microcytosis PT with INR INR PTT (Actin FS) Sodium Potassium Chloride Carbon Dioxide Anion Gap BUN Creatinine Est GFR (CKD-EPI)AfAm Est GFR (CKD-EPI)NonAf Random Glucose Calcium Total Bilirubin AST ALT Alkaline Phosphatase Total Protein Albumin Urine Color Urine Appearance Urine pH Ur Specific [place] Urine Protein Urine Glucose (UA) Urine Ketones Urine Blood Urine Nitrite Urine Bilirubin Urine Urobilinogen Ur Leukocyte Esterase Urine WBC (Auto) Urine RBC (Auto) Urine Casts (Auto) U Epithel Cells (Auto) Urine Bacteria (Auto) Urine HCG, Qual Blood Type Antibody Screen Crossmatch HOSPITAL COURSE: Date of Admission:12/28/18 Date of Discharge: 12/28/18 Discharge Summary Reason For Visit: PROLONG MESNTRUAL CYCLE/LIGHTHEADEDNESS Current Active Problems Lightheadedness (Acute) Menorrhagia (Acute) Prolonged menstrual cycle (Acute) Severe anemia (Acute) Symptomatic anemia (Acute) Condition: Improved - Instructions Diet, Activity, Other Instructions: You came in for dizziness, weakness and shortness of breath. We found that you were anemic. We transfused 2 units of blood. Your body piercer, Dr. Bains gave you a depo shot to help with the bleeding. We noticed that you had elevated liver enzymes. We imaged your liver and found that you had increased liver size. Please discuss with your PCP about testing for Hepatitis. Please follow up with your PCP within 1 week. Please discuss IV Iron transfusions. If you do not have one we have provided Dr. Wilson for you. Please follow up with your HOUSING LIAISON, Dr. Bains, within 1 week. Please return to the ED if you are having worsening shortness of breath, dizziness, weakness. Referrals: Salvatore Wilson MD [Staff Physician] - 1 Week Digna Bains MD [Staff Physician] - 1 Week Disposition: HOME - Home Medications Comprehensive Discharge Medication List: Ambulatory Orders Ascorbic Acid [Vitamin C] 100 mg PO DAILY #30 tablet 12/28/18 Ferrous Sulfate 325 mg PO DAILY #30 tablet 12/28/18
[2018-12-28 16:58] LABS: ALBUMIN 3.4 g/dl (3.4-5.0); BILIRUBIN,TOTAL 0.6 mg/dL (0.2-1); CALCIUM 8.3 mg/dL (8.5-10.1); CREATININE 0.7 mg/dL (0.55-1.3); MAGNESIUM 2.1 mg/dL (1.8-2.4); POTASSIUM 4.3 mmol/L (3.5-5.1)
[2018-12-29 04:11] LABS: SERUM IRON SATURATION 3 % (15-55); TOTAL IRON BINDING CAPACITY 487 ug/dL (250-450); UIBC 471 ug/dL (131-425)
[2018-12-30 04:10] LABS: HEP.C VIRUS AB <0.1 s/co ratio (0.0-0.9)
[2018-12-30 10:11] LABS: SERUM IRON SATURATION 7 % (15-55); TOTAL IRON BINDING CAPACITY 467 ug/dL (250-450); UIBC 432 ug/dL (131-425)
== END 2018-12-28 17:50 | disposition home or self-care (01) | DRG 663 ==
LOC: JER 22:19 → JERBED 12-28 01:28 → J8W 12-28 02:24 → OBSVTOIN 12-28 11:52
PROVIDERS: ADMIT Internal Medicine; ATTEND Internal Medicine
PROC: 30233N1 Transfusion of Nonautologous Red Blood Cells into Peripheral Vein, Percutaneous Approach (ICD-10-PCS; principal; 2018-12-28)
DX: D50.0 Iron deficiency anemia secondary to blood loss (chronic) (principal); N92.1 Excessive and frequent menstruation with irregular cycle; R42 Dizziness and giddiness; E66.01 Morbid (severe) obesity due to excess calories; Z68.42 Body mass index [BMI] 45.0-49.9, adult; D47.3 Essential (hemorrhagic) thrombocythemia; N93.8 Other specified abnormal uterine and vaginal bleeding
CPT/HCPCS: 36415; 36430; 36511; 76705-TC; 80053; 80074; 81003; 82728; 83036; 83540; 83550; 83735; 84443; 84703; 85025; 85027; 85610; 85730; 86850; 86900; 86901; 86922; 99284-25; G0378; P9038; P9058

== ENCOUNTER 2019-09-07 14:39 | Emergency (ER) | payer SELFPAY ==
--- NOTE | 2019-09-07 14:45 | PDOC ---
Rapid Medical Evaluation Chief Complaint: Sore Throat Time Seen by Provider: 09/07/19 14:42 Medical Evaluation: Allergies Allergy/AdvReac Type Severity Reaction Status Date / Time No Known Allergies Allergy Verified 09/07/19 14:42 09/07/19 14:43 I have performed a brief in-person evaluation of this patient. The patient presents with a chief complaint of: cough, sore throat, GONZALEZ, nasal congestion and painful to swallow x 2 days Pertinent physical exam findings: mild pharyngeal erythema. fever of 102 I have ordered the following:rapid strep, influenza, Tylenol The patient will proceed to the ED for further evaluation. Discharge Disposition - Diagnosis Fever Qualifiers: Fever type: unspecified Qualified Code(s): R50.9 - Fever, unspecified - Discharge Dispostion Condition at time of disposition: Stable - Referrals - Patient Instructions - Post Discharge Activity
[2019-09-07 14:46] VITALS: BP 130/77; PULSE 138; TEMP 102.7; BMI 44.9
[2019-09-07] MEDS ORDERED: ACETAMINOPHEN 500 MG TABLET (FP) PO ONE (14:46)
[2019-09-07] MEDS ORDERED: ACETAMINOPHEN 325 MG TABLET (FP) ONE (15:14)
--- NOTE | 2019-09-07 15:28 | PDOC ---
History of Present Illness - General Chief Complaint: Sore Throat Stated Complaint: SORE THROAT Time Seen by Provider: 09/07/19 14:42 - History of Present Illness Initial Comments: 09/07/19 15:27 24-year-old female without comorbidities presents for flulike symptoms x2 days Past History - Past Medical History Allergies/Adverse Reactions: Allergies Allergy/AdvReac Type Severity Reaction Status Date / Time No Known Allergies Allergy Verified 09/07/19 14:42 Home Medications: Ambulatory Orders Ascorbic Acid [Vitamin C] 100 mg PO DAILY #30 tablet 12/28/18 Ferrous Sulfate 325 mg PO DAILY #30 tablet 12/28/18 Oseltamivir Phosphate [Tamiflu] 75 mg PO BID #10 capsule 09/07/19 Anemia: Yes COPD: No - Immunization History Immunization Up to Date: Yes - Psycho Social/Smoking Cessation Hx Smoking History: Never smoked Hx Alcohol Use: No Drug/Substance Use Hx: No Review of Systems - Review of Systems Constitutional: Yes: Chills, Fever, Malaise, Night Sweats HEENTM: Yes: Nose Congestion Respiratory: Yes: Cough *Physical Exam - Vital Signs Last Vital Signs Temp Pulse Resp BP Pulse Ox 102.7 F H 138 H 16 130/77 95 09/07/19 14:42 09/07/19 14:42 09/07/19 14:42 09/07/19 14:42 09/07/19 14:42 - Physical Exam 09/07/19 15:27 GENERAL: The patient is awake, alert, and fully oriented, in no acute distress. HEAD: Normal with no signs of trauma. EYES: sclera anicteric, conjunctiva clear. ENT: Ears normal tympanic membranes normal oropharynx clear uvula midline NECK: Normal range of motion LUNGS: Breath sounds equal, clear to auscultation bilaterally. No wheezes, and no crackles. HEART: S1 and S2 without murmur, rub or gallop. ABDOMEN: Soft, nontender, normoactive bowel sounds. No guarding, no rebound. No masses. EXTREMITIES: Normal range of motion, no edema. No clubbing or cyanosis. No cords, erythema, or tenderness. NEUROLOGICAL: Cranial nerves II through XII grossly intact. PSYCH: Normal mood, normal affect. SKIN: Warm, Dry, normal turgor, no rashes or lesions noted. ED Treatment Course - Medications Given in the ED: ED Medications Discontinued Medications Generic Name Dose Route Start Last Admin Trade Name Giovanny PRN Reason Stop Dose Admin Acetaminophen 1,000 mg 09/07/19 14:46 09/07/19 15:16 Tylenol - PO 09/07/19 14:47 1,000 mg ONCE ONE Administration Medical Decision Making - Medical Decision Making 09/07/19 15:27 We will treat with Tamiflu Discharge - Discharge Information Problems reviewed: Yes Clinical Impression/Diagnosis: Influenza Fever Qualifiers: Fever type: unspecified Qualified Code(s): R50.9 - Fever, unspecified Condition: Stable Disposition: HOME - Admission No - Additional Discharge Information Prescriptions: Oseltamivir Phosphate [Tamiflu] 75 mg PO BID #10 capsule - Follow up/Referral Referrals: Anatoliy Harmon MD [Staff Physician] - - Patient Discharge Instructions Additional Instructions: Tylenol Motrin as directed for fever and body aches. Return to the emergency room for worsening symptoms and without fail follow-up with your primary care physician in 1 to 2 days for further evaluation and treatment options. Please take the Tamiflu as directed. - Post Discharge Activity Work/Back to School Note: Back to Work
== END 2019-09-07 15:45 | disposition home or self-care (01) ==
LOC: JERFT 14:39
DX: J10.1 Influenza due to other identified influenza virus with other respiratory manifestations (principal)
CPT/HCPCS: 87070; 87804; 87880; 99282-25